=== PATIENT | male | born 1985 | race Caucasian/White ===

== ENCOUNTER 2016-10-02 19:01 | Emergency (ER) | payer OTHER ==
[~2016-10-02] VITALS: Ht 180.3 cm; Wt 110.3 kg
[~2016-10-02 19:01] MED LIST: TPRSR25 PO
[2016-10-02 19:11] VITALS: TEMP 36.3; O2SAT 93; Ht 180.3 cm; Wt 110.3 kg
[2016-10-02 19:42] LABS: BASO % 0.4 %; BASO ABS # 0.03 K/uL (0-0.2); COMPLETE YES; EOS % 0.7 %; HEMATOCRIT 42.2 % (42-52); IG% 0.1 %; LYMPH % 20.9 %; MEAN CELL VOLUME 84.2 fL (80-100); MEAN CORPUSCULAR HEMOGLOBIN 30.7 pg (25-34); MEAN CORPUSCULAR HGB CONC 36.5 g/dl (32-36); MEAN PLATELET VOLUME 10.6 fL (7.4-10.4); MONO % 12.2 %; NEUT % 65.7 %; PLATELET COUNT 211 K/uL (130-400); RED BLOOD COUNT 5.01 M/uL (4.7-6.1); WHITE BLOOD COUNT 8.14 K/uL (4.8-10.8)
[2016-10-02 20:02] LABS: ALT/SGPT 30 U/L (12-78); BLOOD UREA NITROGEN 13 mg/dl (7-18); BUN/CREATININE RATIO 10.9 (10-20); CALCIUM 9.2 mg/dl (8.5-10.1); CARBON DIOXIDE 25 mmol/L (21-32); CHLORIDE 107 mmol/L (98-107); GLUCOSE 87 mg/dl (70-99); POTASSIUM 3.7 mmol/L (3.5-5.1); SODIUM 142 mmol/L (136-145)
--- NOTE | 2016-10-02 20:05 | DIAGNOSTIC IMAGING REPORT ---
CHEST ONE VIEW PORTABLE CLINICAL HISTORY: Chest pain. COMPARISON STUDY: Chest radiograph June 09, 2016 per FINDINGS: Lung volumes are at the lower limits of normal. There is no pneumothorax or pleural effusion. Cardiomediastinal silhouette is stable. There is no evidence of pulmonary edema. No consolidation is identified. Cardiac size is at the upper limits of normal. IMPRESSION: No acute cardiopulmonary findings. Electronically signed by: Bryce Paiz M.D. 10/02/2016 8:03 PM Dictated Date/Time: 10/02/2016 8:02 PM
[2016-10-02 20:07] LABS: ALB/GLOB RATIO 1.1 (0.9-2); ALKALINE PHOSPHATASE 129 U/L (45-117); AST/SGOT 23 U/L (15-37)
[2016-10-02] MEDS ORDERED: METO-217 PO (22:14)
--- NOTE | 2016-10-02 23:10 | EMERGENCY ROOM VISIT NOTE ---
History First contact with patient: 19:23 Chief Complaint: CHEST PAIN Stated Complaint: CHEST PAIN Nursing Triage Summary: patient brought in by ems patient reports chest pain into left arm at rest started less than 2 hours ago patient has hx of SVT in april 2016 with ablation History of Present Illness The patient is a 31 year old male who presents to the Emergency Room via ALS with complaints of left-sided chest pain with radiation into the left arm. The patient reports that the pain started suddenly prior to arrival when he was playing with his nieces. He states the pain is located in the left side of the chest and radiates into the left arm. It was very severe at onset, but has slightly improved. He reports he has had some palpitations throughout the day. He has a history of SVT and had an ablation done at [facility] earlier this year. He reports these are similar symptoms as to when he had the first episode of SVT. He follows up with Dr. Salcedo locally. He denies any shortness of breath, nausea, vomiting, jaw pain or abdominal pain. Review of Systems A complete 10-point Review of Systems was discussed with the patient, with pertinent positives and negatives listed in the History of Present Illness. All remaining Review of Systems questions can be considered negative unless otherwise specified. Past Medical/Surgical History Medical Problems: (1) ADHD (attention deficit hyperactivity disorder) (2) Chest pain (3) GERD (gastroesophageal reflux disease) (4) Hx of supraventricular tachycardia Surgical Problems: (1) History of esophagogastroduodenoscopy (EGD) (2) S/P ablation operation for arrhythmia Family History Cancer Diabetes mellitus Heart disease Kidney disease Kidney stones Social History Smoking Status: Former Smoker Drug Use: none Marital Status: single Housing Status: lives alone Occupation Status: employed Current/Historical Medications Scheduled Metoprolol Succinate (Toprol Xl), 50 MG PO DAILY Allergies Coded Allergies: Iodinated Diagnostic Agents (Verified Allergy, Unknown, RASH, 05/10/16) Physical Exam Vital Signs Date Time Temp Pulse Resp B/P Pulse Ox O2 Delivery O2 Flow Rate FiO2 10/02/16 23:23 91 18 145/103 97 10/02/16 23:06 98 10/02/16 21:12 82 18 128/96 97 Room Air 10/02/16 19:15 90 10/02/16 19:11 36.3 93 20 135/90 93 Room Air 10/02/16 19:11 93 Room Air Physical Exam VITALS: Vitals are noted on the nurse's note and reviewed by myself. Vital signs stable. GENERAL: This is a 31-year-old male, in no acute distress, nondiaphoretic, well- developed well-nourished. SKIN: Capillary reflex less than 2 seconds. HEART: Regular rate and rhythm without murmurs gallops or rubs. LUNGS: Clear to auscultation bilaterally without wheezes, rales or rhonchi. No retractions or accessory muscle use. CHEST: Minimal reproducible pain to palpation of the sternal area. NEURO: Patient was alert and oriented to person place and time. Medical Decision & Procedures ER Provider Diagnostic Interpretation: CHEST ONE VIEW PORTABLE CLINICAL HISTORY: Chest pain. COMPARISON STUDY: Chest radiograph June 09, 2016 per FINDINGS: Lung volumes are at the lower limits of normal. There is no pneumothorax or pleural effusion. Cardiomediastinal silhouette is stable. There is no evidence of pulmonary edema. No consolidation is identified. Cardiac size is at the upper limits of normal. IMPRESSION: No acute cardiopulmonary findings. Laboratory Results 10/02/16 19:34 Red Blood Count 5.01, Mean Corpuscular Volume 84.2, Mean Corpuscular Hemoglobin 30.7, Mean Corpuscular Hemoglobin Concent 36.5, Mean Platelet Volume 10.6, Neutrophils (%) (Auto) 65.7, Lymphocytes (%) (Auto) 20.9, Monocytes (%) (Auto) 12.2, Eosinophils (%) (Auto) 0.7, Basophils (%) (Auto) 0.4, Neutrophils # (Auto ) 5.35, Lymphocytes # (Auto) 1.70, Monocytes # (Auto) 0.99, Eosinophils # (Auto ) 0.06, Basophils # (Auto) 0.03 10/02/16 19:34 Test 10/02/16 19:34 10/02/16 22:48 White Blood Count 8.14 K/uL (4.8-10.8) Red Blood Count 5.01 M/uL (4.7-6.1) Hemoglobin 15.4 g/dL (14.0-18.0) Hematocrit 42.2 % (42-52) Mean Corpuscular Volume 84.2 fL (80-100) Mean Corpuscular Hemoglobin 30.7 pg (25-34) Mean Corpuscular Hemoglobin Concent 36.5 g/dl (32-36) Platelet Count 211 K/uL (130-400) Mean Platelet Volume 10.6 fL (7.4-10.4) Neutrophils (%) (Auto) 65.7 % Lymphocytes (%) (Auto) 20.9 % Monocytes (%) (Auto) 12.2 % Eosinophils (%) (Auto) 0.7 % Basophils (%) (Auto) 0.4 % Neutrophils # (Auto) 5.35 K/uL (1.4-6.5) Lymphocytes # (Auto) 1.70 K/uL (1.2-3.4) Monocytes # (Auto) 0.99 K/uL (0.11-0.59) Eosinophils # (Auto) 0.06 K/uL (0-0.5) Basophils # (Auto) 0.03 K/uL (0-0.2) RDW Standard Deviation 37.3 fL (36.4-46.3) RDW Coefficient of Variation 12.3 % (11.5-14.5) Immature Granulocyte % (Auto) 0.1 % Immature Granulocyte # (Auto) 0.01 K/uL (0.00-0.02) Anion Gap 10.0 mmol/L (3-11) Est Creatinine Clear Calc Drug Dose 112.6 ml/min Estimated GFR () 92.8 Estimated GFR (Non- 80.1 BUN/Creatinine Ratio 10.9 (10-20) Calcium Level 9.2 mg/dl (8.5-10.1) Total Bilirubin 0.3 mg/dl (0.2-1) Aspartate Amino Transf (AST/SGOT) 23 U/L (15-37) Alanine Aminotransferase (ALT/SGPT) 30 U/L (12-78) Alkaline Phosphatase 129 U/L (45-117) Total Creatine Kinase 74 U/L (39-308) Creatine Kinase MB < 0.5 ng/ml (0.5-3.6) Creatine Kinase MB Ratio (0-3.0) Total Protein 7.0 gm/dl (6.4-8.2) Albumin 3.7 gm/dl (3.4-5.0) Globulin 3.3 gm/dl (2.5-4.0) Albumin/Globulin Ratio 1.1 (0.9-2) Bedside Troponin I 0.030 ng/ml (0-0.045) ECG Rate (beats per minute): 84 Rhythm: normal sinus Findings: no acute ischemic change, no ectopy Medical Decision Differential diagnosis includes acute coronary syndrome, pulmonary embolism, pneumothorax, pericarditis, myocarditis, endocarditis, anxiety, musculoskeletal pain, GERD, costochondritis, among others. The patient was evaluated as above. Labs were drawn and IV access was obtained. Imaging studies were performed and read by radiology as above. The patient was reassessed multiple times during their stay in the emergency department and remained in stable condition. The patient is a 31-year-old male who presents today complaining of chest pain with radiation into the left arm. Previous records were reviewed. Labs revealed no leukocytosis, anemia or concerning electrolyte abnormalities. Initial troponin was 0.020. 90 minute repeat troponin was performed and was found to be 0.030. Troponin was again repeated 90 minutes after this and was unchanged. EKG was not suggestive of any acute ischemic changes. The patient was reevaluated and his symptoms had completely resolved. Additionally, the patient did have some reproducible pain on examination. I discussed the case with the patient's supervisor sunglasses, Dr. Salcedo, who felt that if the patient was asymptomatic at this time, he was safe to be discharged home to follow-up as an outpatient. The patient is a stress test one month ago which was negative. The patient is aware that if his symptoms return or worsen he should return to the emergency Department immediately. Otherwise, he will call his supervisor sunglasses to arrange follow-up. Based on the patient's presentation, lab results, and imaging studies, I feel the patient is stable for outpatient treatment. The patient's case was reviewed with Dr. Smith, ED attending physician, who agreed with my assessment and treatment plan. Discharge instructions were reviewed with the patient. The patient verbalized understanding of my assessment and treatment plan and was discharged home in good condition. Impression Primary Impression: Precordial chest pain Departure Information Dispostion Home / Self-Care Condition GOOD Referrals Camron Huffman M.D.([facility]) (PCP) Patient Instructions My [facility] Additional Instructions You have been treated in the Emergency Department for your Chest Pain. Laboratory results and Imaging Studies have ruled out any cardiac or pulmonary cause of your chest pain. For pain control, you can use the following [id number] medicines (if >12 yo): - Regular strength (325mg/tab) Tylenol (acetaminophen) 2 tabs every 4-6 hours as needed. Do not exceed 12 tablets in a 24 hour period. Avoid taking more than 4 grams (4000 mg) of Tylenol per day. This includes any other sources of acetaminophen you may take on a regular basis. - Regular strength (200 mg/tab) Advil (ibuprofen) 1-2 tabs every 4-6 hours as needed. Do not exceed a dose of 3200 mg per day. You should schedule a follow-up appointment with your Primary Care Provider in 2 -3 days for further evaluation from today's Emergency Department visit. Call your supervisor sunglasses tomorrow to schedule follow-up. Return to the Emergency Department if your current symptoms worsen despite treatment course outlined above, or if you develop any of the following symptoms : worsening chest pain, associated jaw/arm pain, nausea, dizziness, shortness of breath, bloody cough, or fainting.
[2016-10-02 23:23] VITALS: BP 145/103; PULSE 91; O2SAT 97
== END 2016-10-02 23:24 | disposition home or self-care (01) ==
LOC: EDBD 19:01 → C.EDC 19:02
DX: R07.2 Precordial pain (principal); F90.9 Attention-deficit hyperactivity disorder, unspecified type; K21.9 Gastro-esophageal reflux disease without esophagitis; Z87.891 Personal history of nicotine dependence; Z83.3 Family history of diabetes mellitus; Z84.1 Family history of disorders of kidney and ureter; Z82.49 Family history of ischemic heart disease and other diseases of the circulatory system

== ENCOUNTER 2017-02-26 00:20 | Emergency (ER) | payer OTHER ==
[~2017-02-26] VITALS: Ht 180.3 cm; Wt 115.5 kg
[~2017-02-26 00:20] MED LIST changes: +METO-217 PO; -TPRSR25 PO
[2017-02-26 00:23] VITALS: Ht 180.3 cm; Wt 115.5 kg
[2017-02-26] MEDS ORDERED: CEPH500C PO (00:38)
[2017-02-26] MEDS ORDERED: SULF800T23 PO (00:38)
[2017-02-26] MEDS ORDERED: CEPHALEXIN 500MG HOME PACK 1 EA BTL PO ONE (00:45)
[2017-02-26] MEDS ORDERED: SEPTRA DS HOME PACK 1 EA VIAL PO ONE (00:45)
[2017-02-26 00:47] VITALS: BP 139/96; PULSE 102; TEMP 36.6; O2SAT 94
--- NOTE | 2017-02-26 04:08 | EMERGENCY ROOM VISIT NOTE ---
History First contact with patient: 00:31 Chief Complaint: BITE Stated Complaint: INFECTED SPIDER BITE History of Present Illness The patient is a 31 year old male who presents to the Emergency Room with complaints of infected insect bite to his left lower leg. The patient states that he had some itching in this area yesterday, but now he has redness and pain. The patient is not diabetic and rates his discomfort a 5/10. He is able to ambulate despite his symptoms. He has not had fever or chills. He did note some drainage from the area this morning, but this seems to have stopped. Review of Systems More than 10 systems were reviewed and otherwise negative with the exception of history of present illness. Past Medical/Surgical History Medical Problems: (1) ADHD (attention deficit hyperactivity disorder) (2) Chest pain (3) GERD (gastroesophageal reflux disease) (4) Hx of supraventricular tachycardia Surgical Problems: (1) History of esophagogastroduodenoscopy (EGD) (2) S/P ablation operation for arrhythmia Family History Cancer Diabetes mellitus Heart disease Kidney disease Kidney stones Social History Smoking Status: Former Smoker Drug Use: none Marital Status: single Housing Status: lives alone Occupation Status: employed Current/Historical Medications Scheduled Cephalexin Monohydrate (Keflex), 500 MG PO TID Metoprolol Succinate (Toprol Xl), 50 MG PO DAILY Sulfa/Trimethoprim (Bactrim Ds 800MG/160MG), 1 TAB PO BID Allergies Coded Allergies: Iodinated Diagnostic Agents (Verified Allergy, Unknown, RASH, 02/26/17) Physical Exam Vital Signs Date Time Temp Pulse Resp B/P (MAP) Pulse Ox O2 Delivery O2 Flow Rate FiO2 02/26/17 00:47 36.6 102 18 139/96 94 02/26/17 00:23 36.6 102 18 139/96 94 Room Air Pain Rating (0-10): 0 Physical Exam VITALS: Vitals are noted on the nurse's note and reviewed by myself. Vital signs stable. GENERAL: Well-developed, well-nourished, white male, who is in no acute distress and resting comfortably. Patient is cooperative with the examination. HEAD: Normocephalic atraumatic. HEART: Regular rate and rhythm without murmurs gallops or rubs. LUNGS: Clear to auscultation bilaterally without wheezes, rales or rhonchi. No retractions or accessory muscle use. SKIN: The skin was with an area of cellulitis measuring approximately 6 cm in diameter along the anterior left tibia distally. There is no obvious abscess or purulent drainage for culture. No palpable cords. No posterior calf tenderness. Medical Decision & Procedures Medications Administered Medications (Trade) Dose Ordered Sig/Marta Route Start Time Stop Time Status Last Admin Dose Admin Trimethoprim/ Sulfamethoxazole (Sulfameth/ Trimeth Ds 800/ 160MG Home Pack) 1 homepack UD ONCE PO 02/26/17 00:45 02/26/17 00:46 DC 02/26/17 00:45 1 HOMEPACK Cephalexin Monohydrate (Keflex 500MG Home Pack) 1 homepack NOW ONCE PO 02/26/17 00:45 02/26/17 00:46 DC 02/26/17 00:45 1 HOMEPACK ED Course Physical exam and history were performed. Nursing notes and EMR were reviewed. Patient appears to have a left lower extremity cellulitis. He is otherwise healthy and does not appear toxic. The patient was treated with Bactrim and Keflex here in the department. He will be given a continuation prescriptions of these medications. He is to follow with his primary care physician with any ongoing or persistent symptoms. He voiced understanding and rated his discomfort a 1/10 at the time of departure. The chart was completed utilizing [employer] Speech Voice Recognition Software. Grammatical errors, random word insertions, pronoun errors, and incomplete sentences are an occasional consequence of this system due to software limitations, ambient noise, and hardware issues. Any formal questions or concerns about the content, text, or information contained within the body of this dictation should be directly addressed to the provider for clarification. . Medical Decision Differential diagnosis: Etiologies such as cellulitis, abscess, MRSA infection, DVT, necrotizing fasciitis, dermatitis, drug eruption, as well as others were entertained.. Impression Primary Impression: Cellulitis of leg Departure Information Dispostion Home / Self-Care Condition GOOD Prescriptions Cephalexin Monohydrate (Keflex) 500 Mg Cap 500 MG PO TID for 9 Days, #27 CAP Prov: Tyree Orosco PA-C 02/26/17 Sulfa/Trimethoprim (Bactrim Ds 800MG/160MG) Tab 1 TAB PO BID for 9 Days, #18 TAB Prov: Tyree Orosco PA-C 6/15/17 Referrals Camron Huffman M.D.([facility]) (PCP) Forms HOME CARE DOCUMENTATION FORM, IMPORTANT VISIT INFORMATION Patient Instructions My [facility] Additional Instructions You were seen and evaluated today on an emergency basis only. This is not a substitute for, or an effort to provide, complete comprehensive medical care. It is not possible to recognize and treat all injuries or illnesses in a single emergency department visit. For this reason it is recommended that you followup with your primary care physician next week for any ongoing or persistent symptoms. Trimethoprim-Sulfamethoxazole(Bactrim DS): Take one pill twice daily for 10 days for your skin infection. All antibiotics can cause diarrhea. If this occurs and you feel worse or it does not resolve in 1-2 days follow up with your doctor or return to the Emergency Department as this could be signs of serious underlying problems. Any medication can cause an allergic reaction, stop the pills immediately and return to the ER for rash, hives, breathing difficulties, or swelling. Cephalexin(Keflex) 500mg: Take one pill 3 times daily for 10 days for your skin infection. All antibiotics can cause diarrhea. If this occurs and you feel worse or it does not resolve in 1-2 days follow up with your doctor or return to the Emergency Department as this could be signs of serious underlying problems. Any medication can cause an allergic reaction, stop the pills immediately and return to the ER for rash, hives, breathing difficulties, or swelling. You are welcome to return to the emergency department anytime with new, worsening, or concerning symptoms.
== END 2017-02-26 00:47 | disposition home or self-care (01) ==
LOC: C.EDB 00:20 → C.EDC 00:47
DX: L03.116 Cellulitis of left lower limb (principal)

== ENCOUNTER 2017-04-17 09:40 | Emergency (ER) | payer OTHER ==
[~2017-04-17] VITALS: Ht 180.3 cm; Wt 109.1 kg
[2017-04-17 09:49] VITALS: TEMP 36.9; O2SAT 95; Ht 180.3 cm; Wt 109.1 kg
[2017-04-17 10:28] LABS: ISTAT CREATININE 1.2 mg/dl (0.6-1.3); ISTAT HEMOGLOBIN 14.6 g/dl (14.0-18.0); ISTAT IONIZED CALCIUM 1.24 mmol/l (1.12-1.32)
[2017-04-17 10:33] LABS: POINT OF CARE TROPONIN I < 0.030 ng/ml (0-0.045)
--- NOTE | 2017-04-17 10:37 | DIAGNOSTIC IMAGING REPORT ---
CHEST ONE VIEW PORTABLE CLINICAL HISTORY: Evaluate Fever/Sepsis dyspnea COMPARISON STUDY: 10/02/2016 FINDINGS: The bones soft tissues and hemidiaphragms are normal. The cardiomediastinal silhouette is normal. The lungs are clear. The pulmonary vasculature is normal. IMPRESSION: Negative chest. The above report was generated using voice recognition software. It may contain grammatical, syntax or spelling errors. Electronically signed by: Josh Velasco M.D. 04/17/2017 10:36 AM Dictated Date/Time: 04/17/2017 10:36 AM
[2017-04-17] MEDS ORDERED: PARO10TA PO (10:42)
[2017-04-17] MEDS ORDERED: ABL5 PO (10:42)
[2017-04-17] MEDS ORDERED: DiphenhydrAMINE HCL 50 MG/ML VIAL IV STA (11:58)
[2017-04-17] MEDS ORDERED: METHYLPREDNISOLONE 125 MG VIAL IV STA (11:58)
[2017-04-17] MEDS ORDERED: OPTIRAY 320 IV PRN (12:00)
--- NOTE | 2017-04-17 13:26 | DIAGNOSTIC IMAGING REPORT ---
CT ANGIOGRAM OF THE CHEST CLINICAL HISTORY: Atypical chest pain. COMPARISON STUDY: Chest x-ray dated 04/17/2017. Chest CT dated 05/09/2016. TECHNIQUE: Following the IV administration of 93 cc of Optiray 320, CT angiogram of the chest was performed from the upper abdomen to the thoracic inlet utilizing the pulmonary embolus protocol. Images are reviewed in the axial, sagittal, and coronal planes. 3-D MIPS images are created and assessed. IV contrast was administered without complication. The patient was reportedly premedicated in the emergency department for a reported history of contrast allergy. A dose lowering technique was utilized adhering to the principles of ALARA. CT DOSE: 641.20 mGycm FINDINGS: Thyroid: Imaged portions of the thyroid gland are normal in size and attenuation. Thoracic aorta: The thoracic aorta is normal in caliber and demonstrates standard 3-vessel arch anatomy. No dissection is seen. Pulmonary vasculature: The pulmonary trunk is normal in caliber. There are no filling defects identified in main, lobar, or segmental pulmonary branches to suggest pulmonary embolus. Heart: The heart is top normal in size and without pericardial effusion. Lungs and pleural spaces: A calcified granuloma is seen in the right lower lobe. The lungs and pleural spaces are otherwise clear noting dependent atelectasis. The trachea and central airways are patent. Mediastinum: There is no mediastinal lymphadenopathy. Vicki: Clear. Axillae: There is no axillary lymphadenopathy. Upper abdomen: There is a tiny hiatal hernia. A 1.4 cm lesion in the right lobe of liver is unchanged and typical appearance for a small hemangioma. Partially visualized upper abdominal viscera is otherwise within normal limits. Skeletal structures: There is mild thoracic scoliosis. No lytic or blastic bony lesions are seen. IMPRESSION: 1. There is no evidence of pulmonary embolus in the main, lobar, or segmental pulmonary arteries. 2. The lungs are clear. Electronically signed by: Louis Rojas M.D. 04/17/2017 1:25 PM Dictated Date/Time: 04/17/2017 1:03 PM
--- NOTE | 2017-04-17 13:41 | EMERGENCY ROOM VISIT NOTE ---
History Report prepared by Avelina: Gina Machado Under the Supervision of: Dr. Dajuan Escamilla D.O. First contact with patient: 10:01 Chief Complaint: CHEST PAIN Stated Complaint: CHEST PAIN Nursing Triage Summary: Per EMS, pt. reports substernal chest pain that radiates down right arm with nausea that started at 0800 this morning. Pt. had an ablasion for SVT one year ago. Pt. initially rated pain as 10/10. After three rounds of nitro, now rates as 5/10. History of Present Illness The patient is a 31 year old male who presents to the Emergency Room with complaints of persistent chest pain starting 0800 today. The patient currently rates his discomfort as a 7/10 in severity. He describes his pain as a tightness. He also reports a fluttering in his chest and right arm numbness. He denies any swelling in the legs. He has a history of SVT. He denies any other medical problems. He denies any recent surgeries. Source of History: patient Onset: 0800 today Position: chest Symptom Intensity: 7/10 Quality: other (tightness) Timing: other (persistent) Associated Symptoms: + numbness (right arm) Note: Pt reports heart fluttering. Pt denies swelling in legs. Review of Systems See HPI for pertinent positives & negatives. A total of 10 systems reviewed and were otherwise negative. Past Medical & Surgical Medical Problems: (1) ADHD (attention deficit hyperactivity disorder) (2) Chest pain (3) GERD (gastroesophageal reflux disease) (4) Hx of supraventricular tachycardia Surgical Problems: (1) History of esophagogastroduodenoscopy (EGD) (2) S/P ablation operation for arrhythmia Family History Cancer Diabetes mellitus Heart disease Kidney disease Kidney stones Social History Smoking Status: Former Smoker Drug Use: none Marital Status: single Housing Status: lives alone Occupation Status: employed Current/Historical Medications Scheduled Aripiprazole (Abilify), 5 MG PO DAILY Metoprolol Succinate (Toprol Xl), 50 MG PO DAILY Paroxetine Hcl (Paxil), 10 MG PO DAILY Allergies Coded Allergies: Iodinated Diagnostic Agents (Verified Allergy, Unknown, RASH, 02/26/17) Physical Exam Vital Signs Date Time Temp Pulse Resp B/P (MAP) Pulse Ox O2 Delivery O2 Flow Rate FiO2 04/17/17 13:53 74 20 159/97 98 04/17/17 13:11 89 04/17/17 12:07 91 14 128/95 96 Room Air 04/17/17 10:57 106 17 136/103 96 Room Air 04/17/17 09:50 105 04/17/17 09:49 95 Room Air 04/17/17 09:49 95 Room Air 04/17/17 09:49 36.9 108 23 118/77 95 Room Air Physical Exam CONSTITUTIONAL/VITAL SIGNS: Reviewed / noted above. GENERAL: Non-toxic in appearance. INTEGUMENTARY: Warm, dry, and [place]. HEAD: Normocephalic. EYES: without scleral icterus or trauma. ENT/OROPHARYNX: clear and moist. LYMPHADENOPATHY/NECK: Is supple without lymphadenopathy or meningismus. RESPIRATORY: Lungs clear and equal. CARDIOVASCULAR: Regular rate and rhythm. GI/ABDOMEN: Soft and nontender. No organomegaly or pulsatile mass. No rebound or guarding. Normal bowel sounds. EXTREMITIES: Warm and well perfused. BACK: No CVA tenderness. NEUROLOGICAL: Intact without focal deficits. PSYCHIATRIC: normal affect. MUSCULOSKELETAL: Normally developed with good muscle tone. Medical Decision & Procedures ER Provider Diagnostic Interpretation: X ray results and stated below per my interpretation and radiology interpretation. Radiology results as stated below per my review and radiologist interpretation: CHEST ONE VIEW PORTABLE CLINICAL HISTORY: Evaluate Fever/Sepsis dyspnea COMPARISON STUDY: 10/02/2016 FINDINGS: The bones soft tissues and hemidiaphragms are normal. The cardiomediastinal silhouette is normal. The lungs are clear. The pulmonary vasculature is normal. IMPRESSION: Negative chest. The above report was generated using voice recognition software. It may contain grammatical, syntax or spelling errors. Electronically signed by: Josh Velasco M.D. 04/17/2017 10:36 AM Dictated Date/Time: 04/17/2017 10:[address] ANGIOGRAM OF THE CHEST CLINICAL HISTORY: Atypical chest pain. COMPARISON STUDY: Chest x-ray dated 04/17/2017. Chest CT dated 05/09/2016. TECHNIQUE: Following the IV administration of 93 cc of Optiray 320, CT angiogram of the chest was performed from the upper abdomen to the thoracic inlet utilizing the pulmonary embolus protocol. Images are reviewed in the axial, sagittal, and coronal planes. 3-D MIPS images are created and assessed. IV contrast was administered without complication. The patient was reportedly premedicated in the emergency department for a reported history of contrast allergy. A dose lowering technique was utilized adhering to the principles of ALARA. CT DOSE: 641.20 mGycm FINDINGS: Thyroid: Imaged portions of the thyroid gland are normal in size and attenuation. Thoracic aorta: The thoracic aorta is normal in caliber and demonstrates standard 3-vessel arch anatomy. No dissection is seen. Pulmonary vasculature: The pulmonary trunk is normal in caliber. There are no filling defects identified in main, lobar, or segmental pulmonary branches to suggest pulmonary embolus. Heart: The heart is top normal in size and without pericardial effusion. Lungs and pleural spaces: A calcified granuloma is seen in the right lower lobe. The lungs and pleural spaces are otherwise clear noting dependent atelectasis. The trachea and central airways are patent. Mediastinum: There is no mediastinal lymphadenopathy. Vicki: Clear. Axillae: There is no axillary lymphadenopathy. Upper abdomen: There is a tiny hiatal hernia. A 1.4 cm lesion in the right lobe of liver is unchanged and typical appearance for a small hemangioma. Partially visualized upper abdominal viscera is otherwise within normal limits. Skeletal structures: There is mild thoracic scoliosis. No lytic or blastic bony lesions are seen. IMPRESSION: 1. There is no evidence of pulmonary embolus in the main, lobar, or segmental pulmonary arteries. 2. The lungs are clear. Electronically signed by: Louis Rojas M.D. 04/17/2017 1:25 PM Dictated Date/Time: 04/17/2017 1:03 PM Laboratory Results Test 04/17/17 10:14 04/17/17 10:15 Bedside D-Dimer > 450 ng/mlFEU (0-450) Bedside Troponin I < 0.030 ng/ml (0-0.045) Bedside Hemoglobin 14.6 g/dl (14.0-18.0) Bedside Hematocrit 43 % (42-52) Bedside Sodium 141 mEq/L (135-144) Bedside Potassium 4.0 mEq/L (3.3-5.0) Bedside Chloride 106 mEq/L (101-112) Bedside Total CO2 24 mEq/l (24-31) Anion Gap 17.0 mmol/L (16-25) Bedside Blood Urea Nitrogen 16 mg/dl (7-18) Bedside Creatinine 1.2 mg/dl (0.6-1.3) Bedside Glucose (other) 108 mg/dl (70-99) Bedside Ionized Calcium (Thanh) 1.24 mmol/l (1.12-1.32) Laboratory results as stated above per my review. Medications Administered Medications (Trade) Dose Ordered Sig/Marta Route Start Time Stop Time Status Last Admin Dose Admin Methylprednisolone Sodium Succinate (Solu-Medrol IV) 125 mg NOW STAT IV 04/17/17 11:58 04/17/17 11:59 DC 04/17/17 12:07 125 MG Diphenhydramine HCl (Benadryl Inj) 50 mg NOW STAT IV 04/17/17 11:58 04/17/17 11:59 DC 04/17/17 12:07 50 MG ECG Indication: chest pain Rate (beats per minute): 104 Rhythm: sinus tachycardia Findings: no ectopy, other (no acute injury) ED Course 1001: Previous medical records were reviewed. The patient was evaluated in room A12B. A complete history and physical examination was performed. 1158: Benadryl Inj 50 mg IV, Solu-Medrol IV 125 mg IV. 1343: On reevaluation, the patient is resting comfortably. I discussed the results and findings with the patient. He verbalized agreement of the treatment plan. He was discharged home. Medical Decision the differential was considered includes acute myocardial infarction, acute coronary syndrome, myocarditis, pericarditis, pericardial effusions /tamponad, esophageal perforation, thoracic aortic dissection, pulmonary embolism, pneumonia, pneumothorax, pancreatitis, shingles, acute cholecystitis, perforated abdominal viscus. This is a 31-year-old male who presents to the ED with a chief complaint of chest pain. The patient states that it was a tightness and fluttering in his chest. He reports a history of SVT. His symptoms started around 7 AM today. He states that his symptoms persisted although they seem to be better now. The patient's vital signs are stable. His heart rate was 105. His EKG shows a sinus tachycardia rate 104. Chest x-ray did not show acute disease. A d-dimer was elevated. Troponin was negative. A CT scan of the chest was negative for acute intra thoracic process. The patient will be discharged. He was told the results. He is felt to be stable for discharge. Medication Reconcilliation Current Medication List: was personally reviewed by me Blood Pressure Screening Patient's blood pressure: Normal blood pressure Blood pressure disposition: Did not require urgent referral Impression Primary Impression: Substernal precordial chest pain Scribe Attestation The scribe's documentation has been prepared under my direction and personally reviewed by me in its entirety. I confirm that the note above accurately reflects all work, treatment, procedures, and medical decision making performed by me. Departure Information Dispostion Home / Self-Care Referrals Camron Huffman M.D.([facility]) (PCP) Patient Instructions My [facility] Additional Instructions Test results today including a CT scan of the chest, EKG and blood work did not reveal any significant cause for your symptoms today. Follow-up with your doctor for further care and evaluation in 1-2 days if symptoms persist. Return to the emergency department for worsening or new symptoms or any concerns. You have been examined and treated today on an emergency basis only. This is not a substitute for, or an effort to provide, complete comprehensive medical care. It is impossible to recognize and treat all injuries or illnesses in a single emergency department visit. It is therefore important that you follow up closely with your doctor. Call as soon as possible for an appointment.
[2017-04-17 13:53] VITALS: BP 159/97; PULSE 74; O2SAT 98
== END 2017-04-17 13:56 | disposition home or self-care (01) ==
LOC: EDBD 09:40 → C.EDA 09:41
DX: R07.2 Precordial pain (principal); F90.9 Attention-deficit hyperactivity disorder, unspecified type; K21.9 Gastro-esophageal reflux disease without esophagitis; Z98.890 Other specified postprocedural states; Z91.041 Radiographic dye allergy status; Z87.891 Personal history of nicotine dependence; Z80.9 Family history of malignant neoplasm, unspecified; Z83.3 Family history of diabetes mellitus; Z82.49 Family history of ischemic heart disease and other diseases of the circulatory system; Z84.1 Family history of disorders of kidney and ureter

== ENCOUNTER 2017-11-05 19:54 | Inpatient (IN) | payer OTHER ==
[~2017-11-05] VITALS: Ht 180.3 cm; Wt 115.3 kg
[~2017-11-05 19:54] MED LIST changes: +ABL5 PO; -METO-217 PO; +PARO10TA PO
[2017-11-05] MEDS ORDERED: LORAZEPAM 2 MG/ML 1 ML VIAL IV STA (20:04)
[2017-11-05] MEDS ORDERED: METOPROLOL SUCC 50MG EXT REL TAB PO STA (20:04)
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
[2017-11-05 20:19] LABS: HEMATOCRIT 46.2 % (42-52); HEMOGLOBIN 16.3 g/dL (14.0-18.0); MEAN CELL VOLUME 86.2 fL (80-100); MEAN CORPUSCULAR HEMOGLOBIN 30.4 pg (25-34); MEAN CORPUSCULAR HGB CONC 35.3 g/dl (32-36); MEAN PLATELET VOLUME 10.9 fL (7.4-10.4); PLATELET COUNT 230 K/uL (130-400); RED CELL DISTRIBUTION WIDTH CV 12.3 % (11.5-14.5); WHITE BLOOD COUNT 7.16 K/uL (4.8-10.8)
--- NOTE | 2017-11-05 20:25 | DIAGNOSTIC IMAGING REPORT ---
CHEST ONE VIEW PORTABLE CLINICAL HISTORY: CHEST PAIN COMPARISON STUDY: Radiograph and chest CT April 17, 2017. FINDINGS: Lung volumes are normal. There is no pneumothorax or pleural effusion. There is no evidence for pulmonary edema. Cardiomediastinal silhouette is unremarkable. There is no consolidation. The appearance of the chest is unchanged. IMPRESSION: No acute cardiopulmonary findings. Electronically signed by: Bryce Paiz M.D. 11/05/2017 8:24 PM Dictated Date/Time: 11/05/2017 8:23 PM
[2017-11-05 20:31] LABS: ALBUMIN 3.9 gm/dl (3.4-5.0); CALCIUM 9.2 mg/dl (8.5-10.1); CREATININE 1.17 mg/dl (0.60-1.40); POTASSIUM 3.7 mmol/L (3.5-5.1)
[2017-11-05] MEDS ORDERED: GABA-112 PO (20:37)
[2017-11-05] MEDS ORDERED: CNC/27 PO (20:37)
[2017-11-05] MEDS ORDERED: GUAN1TAB23 PO (20:37)
[2017-11-05 20:42] LABS: TOTAL PROTEIN 7.9 gm/dl (6.4-8.2)
[2017-11-05] MEDS ORDERED: METO-217 PO (22:14)
[2017-11-06] MEDS ORDERED: NURSING VERBAL MED ORDER ONE (01:00)
[2017-11-06 01:43] VITALS: O2SAT 95
[2017-11-06] MEDS ORDERED: hydrOXYzine HCL 25 MG TAB ONE (02:13)
[2017-11-06] MEDS ORDERED: BISMUTH SUBSALICYLATE PER ML OMNICELL CHARGE PO PRN (02:45)
[2017-11-06] MEDS ORDERED: SODIUM CHLORIDE 0.65% NA SOLN 45 ML (OCEAN) PRN (02:45)
[2017-11-06] MEDS ORDERED: hydrOXYzine HCL 25 MG TAB PO PRN ×2 (02:45)
[2017-11-06] MEDS ORDERED: MAGNESIUM HYDROXIDE SUSP 30 ML UDC PO PRN (02:45)
[2017-11-06] MEDS ORDERED: ALUMINUM/MAGNESIUM SUSP 30 ML UDC PO PRN (02:45)
[2017-11-06] MEDS ORDERED: ACETAMINOPHEN 325 MG TAB PO PRN (02:45)
[2017-11-06 02:51] VITALS: BP 118/96; PULSE 88; TEMP 36.7; Ht 180.3 cm; Wt 115.3 kg
[2017-11-06 06:55] VITALS: BP_SYST 114; BP_SYST 115; BP_DIAS 79; BP_DIAS 82; PULSE 76; PULSE 84; TEMP 36.9
[2017-11-06] MEDS: GABAPENTIN 100 MG CAP PO SCH ×3 (09:08→22:08)
[2017-11-06] MEDS: METOPROLOL SUCC 50MG EXT REL TAB PO SCH (09:08)
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
[2017-11-06] MEDS: PAROXETINE 20 MG TAB PO SCH (13:09)
[2017-11-06] MEDS: METHYLPHENIDATE HCL 10 MG TAB PO SCH (15:50)
[2017-11-06] MEDS ORDERED: METHYLPHENIDATE HCL 10 MG TAB PO SCH (17:45)
[2017-11-06] MEDS: CLONIDINE HCL 0.1 MG TAB PO SCH (22:08)
[2017-11-07] MEDS: METHYLPHENIDATE HCL 10 MG TAB PO SCH ×2 (06:41→13:42)
[2017-11-07 06:44] VITALS: BP_SYST 112; BP_SYST 116; BP_DIAS 76; PULSE 80; PULSE 90; TEMP 36.5
[2017-11-07] MEDS: GABAPENTIN 100 MG CAP PO SCH ×3 (08:48→21:29)
[2017-11-07] MEDS: PAROXETINE 20 MG TAB PO SCH (08:49)
[2017-11-07] MEDS: METOPROLOL SUCC 50MG EXT REL TAB PO SCH (08:49)
[2017-11-07] MEDS ORDERED: METHYLPHENIDATE HCL 27 MG PO SCH (09:00)
[2017-11-07] MEDS ORDERED: PAROXETINE 20 MG TAB PO SCH (09:00)
--- NOTE | 2017-11-07 13:58 | Psychiatric Progress Notes ---
Progress Note Date of Service Nov 07, 2017. Interval History Ranjith Steen is a 32-year-old male admitted on Nov 06, 2017 at 01:01 who currently lives in [place]. Ranjith Steen was admitted on a 201 voluntary commitment but there is a petitioning statement from his sister with whom he lives. Patient is admitted from home. The patient was brought to the ED for CP following an argument with his sister. Chief Complaint "Oh yeah, my mood's a 10 today, I'm great!". Subjective Patient was seen & assessed interval progress reviewed with Nursing. Staff reports the patient has a family meeting today with his sister whom he lives with. Pt was restarted on home medications. Pt was started on Ritalin while hospitalized due to Concerta being non-formulary, does not have prescription of Concerta available to be dispensed during his treatment here. Pt was seen today to assess progress since admission. Pt states he is doing "great" and his mood is a "10". Pt states the only reason he came to the hospital was to be restarted on his home medications and he feels that goals has been met. Discussed with patient recommendations for a few days of observation to ensure his mood was remaining stable. Pt was agreeable to this. Pt denies SI/HI, A/V hallucinations, or other psychosis. He feels he is doing well and requests permission to wait in his room until his sister arrives for the family meeting. He denies other concerns or needs today. Review of Systems Psych: denies symptoms other than stated above Constitutional: denied Cardiovascular: denied GI: denied Neurologic: denied Remainder of 10 body systems also reviewed and denied other than noted above. Sleep Information Total Hours of Sleep: 7.00 Meal Information Percent of Breakfast Consumed: 100 Percent of Lunch Consumed: 100 Percent of Dinner Consumed: 100 Mental Status Exam During interview pt is: alert and oriented, cooperative Appearance: appropriately dressed, appropriately groomed Eye contact is: good Motor behavior is: steady gait & station, no abnormal motor movements Speech: normal in rate, rhythm & volume Affect: blunted Mood is: other ("good, my mood is a 10") Thought process: clear, coherent, concrete Thought content: reality based without delusions Suicidal thought are: denied Homicidal thoughts are: denied Hallucinations: denies auditory, denies visual Cognition: memory grossly intact, attention grossly intact, language grossly intact Intelligence estimated to be: below average Insight: limited Judgement: limited Impression Pt reports improvement in mood and feels that he has met his goal of being restarted on his home medications. Pt is anticipating family meeting with his sister shortly and is feeling optimistic for discharge relatively soon. He denies side effects from restarting medications, but was told that he may require a few more days of mood observation to ensure he was ready to go home as he presented with increased irritability and reactivity. Pt was agreeable to this. Pt requires ongoing inpatient hospitalization due to observation for medication side effects, mood changes, and still being at risk of harm to self or others if discharged prematurely. Plan (1) Bipolar disorder The patient is admitted to [facility] ([facility] mental health unit) on q 15 min checks (behavioral with suicide precautions) for safety. The patient will participate in group, recreational and milieu therapies and will be offered additional individual and family sessions as clinically appropriate. Resume Paxil as no active evidence of zoran, will address sleep with change from guanfacine (non-formulary) to clonidine. If ineffective, taper clonidine in favor of another agent. Will review records as patient is limited historian, presentation consistent with bipolar dx given irritability and hx of flores Wellbutrin, tolerating low dose stimulant without psychosis. 2 - Continue medications as above. Pt denies side effects. - Family meeting with sister this afternoon. (2) ADHD (attention deficit hyperactivity disorder) patient is s/p ablation and rate controlled on Toprol, no active cardiac ds so will continue Concerta as effective for ADHD symptoms. 11/07 - Pt given Ritalin as Concerta is non-formulary and he does not have home prescription to be dispensed while here. Pt is agreeable to continuing Ritalin until discharge. (3) Chest pain likely anxiety related given negative w/u in ED, continue Neurontin for anxiety Discharge / Aftercare Planning Primary Care Physician: Name[facility] Appointment Notes: follow up as needed Psychiatrist: Name: Dr. Licea Date of Appointment: Nov 17, 2017 Time of Appointment: 10:15 a.m. Therapist: Name: Brittany @ Dr. Licea's office Date of Appointment: Nov 17, 2017 Time of Appointment: 11:00 a.m. Wood Carving Lathe Operator: Name: Altagracia Young JAKUB Appointment Notes: Altagracia on vacation, Research Epidemiologist will call Thursday and possibly visit Visit Code E&M Code: 98131 Inventory Assets Strengths: outpatient providers, employed Needs: transportation Risk Factors Assessment Male: Yes : Yes /single/: Yes Mental Health Diagnoses: Yes Substance use disorders: No Previous attempt: No Previous psychiatric stay: No Protective Factors Assessment Employed: Yes Data Vital Signs Last 24 Hrs: Date Time Temp Pulse Resp B/P (MAP) Pulse Ox O2 Delivery O2 Flow Rate FiO2 11/07/17 06:44 36.5 80 18 116/76 90 112/76 Meds Administered Last 24 Hrs: Meds Administered (Past 24Hrs) Medications (Trade) Dose Ordered Sig/Marta Route Start Time Stop Time Status Last Admin Dose Admin Metoprolol Succinate (Toprol Xl Tab) 50 mg NOW STAT PO 11/05/17 20:04 11/05/17 20:08 DC 11/05/17 20:30 50 MG Lorazepam (Ativan Inj) 1 mg NOW STAT IV 11/05/17 20:04 11/05/17 20:08 DC 11/05/17 20:31 1 MG Hydroxyzine HCl (Vistaril Tab) 50 mg STK-MED ONCE .ROUTE 11/06/17 02:13 11/06/17 02:14 DC 11/06/17 02:16 50 MG Gabapentin (Neurontin Cap) 100 mg TID PO 11/06/17 09:00 12/06/17 08:59 11/07/17 08:48 100 MG Metoprolol Succinate (Toprol Xl Tab) 50 mg DAILY PO 11/06/17 09:00 12/06/17 08:59 11/07/17 08:49 50 MG Clonidine HCl (Catapres Tab) 0.1 mg HS PO 11/06/17 22:00 12/06/17 21:59 11/06/17 22:08 0.1 MG Paroxetine HCl (pAXil TAB) 10 mg DAILY PO 11/06/17 12:45 12/06/17 12:44 11/07/17 08:49 10 MG Methylphenidate HCl (Ritalin Tab) 10 mg [id number] PO 11/06/17 14:30 11/20/17 14:29 11/07/17 06:41 10 MG Problem Qualifiers (1) Bipolar disorder: Active/Remission status: remission status unspecified Qualified Codes: F31.9 - Bipolar disorder, unspecified (2) ADHD (attention deficit hyperactivity disorder): Attention deficit-hyperactivity disorder type: unspecified Qualified Codes: F90.9 - Attention-deficit hyperactivity disorder, unspecified type
[2017-11-07] MEDS: CLONIDINE HCL 0.1 MG TAB PO SCH (21:29)
[2017-11-08 06:42] VITALS: BP_SYST 104; BP_SYST 106; BP_DIAS 70; BP_DIAS 71; PULSE 74; PULSE 84; TEMP 36.7
[2017-11-08] MEDS: METHYLPHENIDATE HCL 10 MG TAB PO SCH ×2 (06:57→14:12)
[2017-11-08] MEDS: PAROXETINE 20 MG TAB PO SCH (07:51)
[2017-11-08] MEDS: GABAPENTIN 100 MG CAP PO SCH ×3 (07:51→20:41)
[2017-11-08] MEDS: METOPROLOL SUCC 50MG EXT REL TAB PO SCH (07:51)
--- NOTE | 2017-11-08 08:57 | Psychiatric Progress Notes ---
Progress Note Date of Service Nov 08, 2017. Interval History Ranjith Steen is a 32-year-old male admitted on Nov 06, 2017 at 01:01 who currently lives in [place]. Ranjith Steen was admitted on a 201 voluntary commitment but there is a petitioning statement from his sister with whom he lives. Patient is admitted from home. The patient was brought to the ED for CP following an argument with his sister. Chief Complaint "Really good". Subjective Patient was seen & assessed interval progress reviewed with Treatment Team. The patient says that his mood is good today. He had a good meeting with his sister yesterday. He admits that he has struggled to believe he needs medicine in the past, and this was part of the problem prior to admission and him not taking medications. He has been restarted on medications and already says that he feels better. He has worked on a safety plan, part of which is that his sister will help him monitor his medications and get a better pill organizer. He also is working toward getting Social Security disability and has an title attorney to represent him. He feels that he cannot work because he is afraid he will get angry and lash out at someone. He says that this idea has been supported by his therapist. He slept well last night, is eating well and is hopeful for discharge as soon as possible. He denies any further suicidal ideation, has been attending groups, and feels he's gotten a lot out of being here. Review of Systems Constitutional: No fever, No chills, No sweats, No weight loss, No weakness, No fatigue, No problem reported ENT: No hearing loss, No unusual epistaxis, No nasal symptoms, No sore throat, No tinnitus, No dental problems, No trouble swallowing, No problem reported Respiratory: No cough, No sputum, No wheezing, No shortness of breath, No dyspnea on exertion, No dyspnea at rest, No hemoptysis, No problem reported Cardiovascular: No chest pain, No orthopnea, No PND, No edema, No claudication , No palpitations, No problem reported Abdomen: No pain, No nausea, No vomiting, No diarrhea, No constipation, No GI bleeding, No problem reported Musculoskeletal: No joint pain, No muscle pain, No swelling, No calf pain, No problem reported Neurologic: No memory loss, No paralysis, No weakness, No numbness/tingling, No vertigo, No balance problems, No problem reported Psychiatric: No depression symptoms, No anhedonism, No anxiety, No insomnia, No substance abuse, No problem reported Integumentary: No rash, No itch, No new/changing skin lesions, No color change , No bleeding, No problem reported Sleep Information Total Hours of Sleep: 7.25 Meal Information Percent of Breakfast Consumed: 100 Percent of Lunch Consumed: 100 Percent of Dinner Consumed: 100 Mental Status Exam During interview pt is: alert and oriented, cooperative Appearance: appropriately dressed, appropriately groomed Eye contact is: good Motor behavior is: steady gait & station, no abnormal motor movements Speech: normal in rate, rhythm & volume Affect: blunted Mood is: other ("Really good.") Thought process: clear, coherent, concrete Thought content: reality based without delusions Suicidal thought are: denied Homicidal thoughts are: denied Hallucinations: denies auditory, denies visual Cognition: memory grossly intact, attention grossly intact, language grossly intact Intelligence estimated to be: below average Insight: limited Judgement: limited Impression Has been able to maintain his improved mood. Is working hard at establishing a good safety plan and family meeting with sister went well. She will assist him to stay on his medications, something that precipitated this hospitalization. He is no longer suicidal, and would like to be discharged as soon as possible. Plan (1) Bipolar disorder The patient is admitted to [facility] ([facility]) on q 15 min checks (behavioral with suicide precautions) for safety. The patient will participate in group, recreational and milieu therapies and will be offered additional individual and family sessions as clinically appropriate. Resume Paxil as no active evidence of zoran, will address sleep with change from guanfacine (non-formulary) to clonidine. If ineffective, taper clonidine in favor of another agent. Will review records as patient is limited historian, presentation consistent with bipolar dx given irritability and hx of flores Wellbutrin, tolerating low dose stimulant without psychosis. 11/07 - Continue medications as above. Pt denies side effects. - Family meeting with sister this afternoon. 11/08 - Continue current medications (2) ADHD (attention deficit hyperactivity disorder) patient is s/p ablation and rate controlled on Toprol, no active cardiac ds so will continue Concerta as effective for ADHD symptoms. 11/07 - Pt given Ritalin as Concerta is non-formulary and he does not have home prescription to be dispensed while here. Pt is agreeable to continuing Ritalin until discharge. (3) Chest pain likely anxiety related given negative w/u in ED, continue Neurontin for anxiety Discharge / Aftercare Planning Primary Care Physician: Name: Young Ennis Appointment Notes: follow up as needed Psychiatrist: Name: Dr. Licea Date of Appointment: Nov 17, 2017 Time of Appointment: 10:15 a.m. Therapist: Name: Brittany @ Dr. Licea's office Date of Appointment: Nov 17, 2017 Time of Appointment: 11:00 a.m. Cleater: Name: JAKUB Mckinney Appointment Notes: Altagracia on vacation, Supervisor Mail Carriers will call Thursday and possibly visit Visit Code E&M Code: 81172 Inventory Assets Strengths: outpatient providers, employed Needs: transportation Risk Factors Assessment Male: Yes : Yes /single/: Yes Mental Health Diagnoses: Yes Substance use disorders: No Previous attempt: No Previous psychiatric stay: No Protective Factors Assessment Employed: Yes Data Vital Signs Last 24 Hrs: Date Time Temp Pulse Resp B/P (MAP) Pulse Ox O2 Delivery O2 Flow Rate FiO2 11/08/17 06:42 36.7 74 18 106/70 84 104/71 Meds Administered Last 24 Hrs: Meds Administered (Past 24Hrs) Medications (Trade) Dose Ordered Sig/Marta Route Start Time Stop Time Status Last Admin Dose Admin Gabapentin (Neurontin Cap) 100 mg TID PO 11/06/17 09:00 12/06/17 08:59 11/08/17 07:51 100 MG Metoprolol Succinate (Toprol Xl Tab) 50 mg DAILY PO 11/06/17 09:00 12/06/17 08:59 11/08/17 07:51 50 MG Clonidine HCl (Catapres Tab) 0.1 mg HS PO 11/06/17 22:00 12/06/17 21:59 11/07/17 21:29 0.1 MG Paroxetine HCl (pAXil TAB) 10 mg DAILY PO 11/06/17 12:45 12/06/17 12:44 11/08/17 07:51 10 MG Methylphenidate HCl (Ritalin Tab) 10 mg [id number] PO 11/06/17 14:30 11/20/17 14:29 11/08/17 06:57 10 MG Lab Results Last 24 Hrs: 11/05/17 19:35 11/05/17 19:35 Test 11/05/17 19:35 11/05/17 20:18 11/05/17 20:36 11/05/17 22:34 Red Blood Count 5.36 M/uL (4.7-6.1) Mean Corpuscular Volume 86.2 fL (80-100) Mean Corpuscular Hemoglobin 30.4 pg (25-34) Mean Corpuscular Hemoglobin Concent 35.3 g/dl (32-36) RDW Standard Deviation 39.0 fL (36.4-46.3) RDW Coefficient of Variation 12.3 % (11.5-14.5) Mean Platelet Volume 10.9 fL (7.4-10.4) Anion Gap 7.0 mmol/L (3-11) Est Creatinine Clear Calc Drug Dose 118.9 ml/min Estimated GFR () 95.0 Estimated GFR (Non- 82.0 BUN/Creatinine Ratio 9.5 (10-20) Calcium Level 9.2 mg/dl (8.5-10.1) Total Bilirubin 0.4 mg/dl (0.2-1) Aspartate Amino Transf (AST/SGOT) 26 U/L (15-37) Alanine Aminotransferase (ALT/SGPT) 35 U/L (12-78) Alkaline Phosphatase 134 U/L (45-117) Total Protein 7.9 gm/dl (6.4-8.2) Albumin 3.9 gm/dl (3.4-5.0) Globulin 4.0 gm/dl (2.5-4.0) Albumin/Globulin Ratio 1.0 (0.9-2) Thyroid Stimulating Hormone (TSH) 0.700 uIu/ml (0.300-4.500) Ethyl Alcohol mg/dL < 3.0 mg/dl (0-3) Urine Color YELLOW Urine Appearance CLEAR (CLEAR) Urine pH 6.0 (4.5-7.5) Urine Specific [place] 1.031 (1.000-1.030) Urine Protein NEG (NEG) Urine Glucose (UA) NEG (NEG) Urine Ketones NEG (NEG) Urine Occult Blood NEG (NEG) Urine Nitrite NEG (NEG) Urine Bilirubin NEG (NEG) Urine Urobilinogen NEG (NEG) Urine Leukocyte Esterase NEG (NEG) Urine Opiates Screen NEG (NEG) Urine Methadone, Qualitative NEG (NEG) Urine Barbiturates NEG (NEG) Urine Phencyclidine (PCP) Level NEG (NEG) Ur Amphetamine/Methamphetamine NEG (NEG) MDMA (Ecstasy) Screen NEG (NEG) Urine Benzodiazepines Screen NEG (NEG) Urine Cocaine Metabolite NEG (NEG) Urine Marijuana (THC) NEG (NEG) Bedside Troponin I < 0.030 ng/ml (0-0.045) Problem Qualifiers (1) Bipolar disorder: Active/Remission status: remission status unspecified Qualified Codes: F31.9 - Bipolar disorder, unspecified (2) ADHD (attention deficit hyperactivity disorder): Attention deficit-hyperactivity disorder type: unspecified Qualified Codes: F90.9 - Attention-deficit hyperactivity disorder, unspecified type
[2017-11-08] MEDS: CLONIDINE HCL 0.1 MG TAB PO SCH (20:41)
[2017-11-09] MEDS: METHYLPHENIDATE HCL 10 MG TAB PO SCH (06:50)
[2017-11-09 06:58] VITALS: BP_SYST 101; BP_SYST 108; BP_DIAS 70; BP_DIAS 72; PULSE 71; PULSE 85; TEMP 36.4
[2017-11-09] MEDS: PAROXETINE 20 MG TAB PO SCH (08:26)
[2017-11-09] MEDS: METOPROLOL SUCC 50MG EXT REL TAB PO SCH (08:26)
[2017-11-09] MEDS: GABAPENTIN 100 MG CAP PO SCH (08:26)
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
[2017-11-09] MEDS ORDERED: ATR25 PO ×2 (09:31)
[2017-11-09] MEDS ORDERED: PARO10TA PO (09:31)
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
--- NOTE | 2017-11-09 11:04 | Psych Management Progress Note ---
Psychiatry Miscellaneous Date of Service: Nov 09, 2017. Patient seen, MS assessed. Rates mood as improved. Encouraged cooperation with outpatient plan. Verbalized safety plan. I personally participated in the medical decision making surrounding his discharge.
== END 2017-11-09 10:50 | disposition home or self-care (01) | DRG 885 ==
LOC: EDBD 19:54 → C.EDC 19:55 → EEVIPCON 19:55 → C.MHU 11-06 01:01
PROVIDERS: ADMIT Psychiatry & Neurology Psychiatry; ATTEND Psychiatry & Neurology Child & Adolescent Psychiatry
DX: F31.9 Bipolar disorder, unspecified (principal); F90.9 Attention-deficit hyperactivity disorder, unspecified type; F41.9 Anxiety disorder, unspecified; R07.89 Other chest pain; Z91.14 Patient's other noncompliance with medication regimen; Z87.891 Personal history of nicotine dependence; Z86.79 Personal history of other diseases of the circulatory system; Z98.890 Other specified postprocedural states; Z79.899 Other long term (current) drug therapy; Z91.041 Radiographic dye allergy status; Z82.49 Family history of ischemic heart disease and other diseases of the circulatory system; Z83.3 Family history of diabetes mellitus; Z84.1 Family history of disorders of kidney and ureter